=== PATIENT | female | born 1990 | race Caucasian/White ===

== ENCOUNTER 2017-06-08 19:08 | Outpatient (CLI) | payer OTHER ==
[~2017-06-08 19:08] MED LIST: ALBUTEROL SULF8.5 GM IH; ANTIBIOTIC; CLINDAMYCIN HC300 MG PO; ENDOCET 5-3251 EACH PO; FLINTSTONES1 TABLET PO; IBUPROFEN600 MG PO; LEVAQUIN750 MG PO; MOTRIN600 MG PO; MOTRIN800 MG PO; Motrin PO; NOHOMEMEDS; NUVARING VAGIN1 EACH VG; PEN-VEE K,VEET500 MG PO; PREDNISONE10 MG PO; PREDNISONE20 MG PO; PROVENTIL,2.5 MG/3 M IH; Percocet 5/325,Endoc PO; TRAMADOL HCL50 MG PO; ULTRAM50 MG PO
[2017-06-08 20:04] VITALS: BP 122/68
[2017-06-08] MEDS ORDERED: PRENATAL TABLE1 EAC3 PO (20:17)
[2017-06-08] MEDS ORDERED: TUMS500 MG PO (20:18)
== END 2017-06-08 21:55 | disposition home or self-care (01) ==
LOC: LDRP-OP 19:08 → 2WEST 19:09 → LDRP-OP 09-24 15:54
DX: O36.8130 Decreased fetal movements, third trimester, not applicable or unspecified (principal); Z3A.28 28 weeks gestation of pregnancy
CPT/HCPCS: 59025; G0378

== ENCOUNTER 2017-08-25 12:51 | Outpatient (CLI) | payer OTHER ==
[~2017-08-25 12:51] MED LIST changes: +PRENATAL TABLE1 EAC3 PO; +TUMS500 MG PO
[2017-08-25 13:28] VITALS: BP 114/64
== END 2017-08-25 14:10 | disposition home or self-care (01) ==
LOC: LDRP-OP → 2WEST 12:52 → LDRP-OP 09-24 22:00
DX: O26.893 Other specified pregnancy related conditions, third trimester (principal); R10.9 Unspecified abdominal pain; O34.219 Maternal care for unspecified type scar from previous cesarean delivery; O99.333 Smoking (tobacco) complicating pregnancy, third trimester; F17.200 Nicotine dependence, unspecified, uncomplicated; Z3A.40 40 weeks gestation of pregnancy
CPT/HCPCS: 59025; G0378

== ENCOUNTER 2017-09-05 16:37 | Emergency (ER) | payer OTHER ==
[~2017-09-05] VITALS: Ht 157.5 cm; Wt 76.0 kg
[2017-09-05] MEDS ORDERED: PERCOCET 5/31 TABLET PO (18:15)
[2017-09-05] MEDS ORDERED: KEFLEX500 MG PO (18:15)
[2017-09-05 18:42] VITALS: BP 129/82
== END 2017-09-05 18:43 | disposition home or self-care (01) ==
LOC: EME 16:37
DX: Z48.01 Encounter for change or removal of surgical wound dressing (principal); J45.909 Unspecified asthma, uncomplicated; K21.9 Gastro-esophageal reflux disease without esophagitis; F32.9 Major depressive disorder, single episode, unspecified; F17.200 Nicotine dependence, unspecified, uncomplicated
CPT/HCPCS: 99281; 99283